=== PATIENT | female | born 1995 ===

== ENCOUNTER 2023-09-10 09:14 | Outpatient (CLI) | payer OTHER, SELFPAY | END 2023-09-10 09:15 | disposition home or self-care (01) | PROVIDERS: PCP Family Medicine; Visit Provider Family Medicine | DX: H91.93 Unspecified hearing loss, bilateral (principal) | CPT/HCPCS: 92557; 92567 ==

== ENCOUNTER 2024-11-23 11:08 | Outpatient (CLI) | payer OTHER, SELFPAY ==
--- OUTSIDE RECORDS SUMMARY | 2024-11-23 12:16 | XMS_ITS | Encounter Summary ---
Author Organization [facility] Address [address] [place] [address] Phone Care Team Providers Care Instrument Sterilizer Name Role Phone Provider, None Primary Care Provider Unavailabl e Encounter Details Date Type Department Care Team (Late st Contact Info) Description 12/04/2022 Lab Requisition [facility] Laboratory Services 1 [place] [address] Christiano Mayorga MD [address] [place] [address] [address] [place] [address] Encounter for screening for COVID-19 Social History Tobacco Use Types Packs/Day Years Used Date Smoking Tobacco: Never Assessed Comments Unknown Sex and Gender Information Value Date Recorded Sex Assigned at Not on file Legal Sex Female 10:14 AM CDT Gender Identity Not on file Sexual Orientation Not on file documented as of this encounter Plan of Treatment Not on file documented as of this encounter Procedures Procedure Name Priority Date/Time Associated Diagnosis Comments SARS-COV-2 BY MOLECULAR Routine 12/04/2022 12:32 PM PEDIATRIC DENTIST Encounter for screening for COVID-19 documented in this encounter Results * SARS-COV-2 BY MOLECULAR (12/04/2022 12:32 PM PEDIATRIC DENTIST) SARSCOV2 NOT DETECTED (Referen ce Range for this test is Not Detected ) [facility] THERMOFISHER FAST DX 12/05/2022 10:01 AM PEDIATRIC DENTIST [facility] Comment:This test was perfor med by a RT-PCR method. Other Non-Phlebotomy Collection / Unknown 12/04/2022 12:32 PM PEDIATRIC DENTIST 12/04/2022 1:36 PM PEDIATRIC DENTIST Narrative [facility] - 12/05/2022 10:01 AM PEDIATRIC DENTIST Authorized Fact Sheets about this test for providers and patients are available at: https://www.fda.gov/medical-devices/iuchgnsjv-cehnpaseyv-gfkolbn-devices/emergen -us e-authorizations us Christiano Mayorga MD MICROBIOLOGY - GENERAL ORDERAB LES Final Result [facility] [address] [place] [address], documented in this encounter Visit Diagnoses Diagnosis Encounter for screening for COVID-19 documented in this encounter Additional Health Concerns Infection Onset Date Last Indicated Resolved Time COVID - 19 10/23/2022 01/08/2023 01/18/2023 12:1 6 AM CDT documented as of this encounter Care Teams Instrument Sterilizer Relationship Specialty Start Date End Date Provider, None [place] PCP - General 10/24/22 documented as of this encounter
--- OUTSIDE RECORDS SUMMARY | 2024-11-23 12:16 | XMS_ITS | Encounter Summary ---
Author Organization [facility] Address [address] [place] [address] Phone Care Team Providers Care Cabinet Professional Name Role Phone Provider, None Primary Care Provider Unavailabl e Encounter Details Date Type Department Care Team (Late st Contact Info) Description 01/08/2023 Lab Requisition [facility] Laboratory Services 1 [place] [address] Christiano Mayorga MD [address] [place] [address] [address] [place] [address] Encounter for screening for COVID-19 [...] Associated Diagnosis Comments SARS-COV-2 BY MOLECULAR Routine 01/08/2023 8:54 AM CDT Encounter for screening for COVID-19 documented in this encounter Results * SARS-COV-2 BY MOLECULAR (01/08/2023 8:54 AM CDT) SARSCOV2 NOT DETECTED (Referen ce Range for this test is Not Detected ) [facility] THERMOFISHER FAST DX 01/09/2023 12:18 AM CDT [facility] Comment:This test was perfor med by a RT-PCR method. Other Non-Phlebotomy Collection / Unknown 01/08/2023 8:54 AM CDT 01/08/2023 12:45 PM CDT Narrative [facility] - 01/09/2023 12:18 AM CDT Authorized Fact Sheets about this test for providers and patients are available at: https://www.fda.gov/medical-devices/jewsvtpqa-zvimlfbjgs-xssuhds-devices/emergen -us e-authorizations us Christiano Mayorga MD MICROBIOLOGY - GENERAL ORDERAB LES Final Result [facility] [address] [place] [address], documented in this encounter Visit Diagnoses Diagnosis Encounter for screening for COVID-19 documented in this encounter Additional Health Concerns Infection Onset Date Last Indicated Resolved Time COVID - 19 10/23/2022 01/08/2023 01/18/2023 12:1 6 AM CDT documented as of this encounter Care Teams Cabinet Professional Relationship Specialty Start Date End Date Provider, None [place] PCP - General 10/24/22 documented as of this encounter
--- OUTSIDE RECORDS SUMMARY | 2024-11-23 12:16 | XMS_ITS | Encounter Summary ---
Author Organization [facility] Address [address] [place] [address] Phone Care Team Providers Care Dot Net Developer Name Role Phone Provider, None Primary Care Provider Unavailabl e Encounter Details Date Type Department Care Team (Late st Contact Info) Description 12/11/2022 Lab Requisition [facility] Laboratory Services 1 [place] [address] Christiano Mayorga MD [address] [place] [address] [address] [place] [address] Encounter for screening for COVID-19 [...] Associated Diagnosis Comments SARS-COV-2 BY MOLECULAR Routine 12/11/2022 9:40 AM SLICE PLUG CUTTER OPERATOR HELPER Encounter for screening for COVID-19 documented in this encounter Results * SARS-COV-2 BY MOLECULAR (12/11/2022 9:40 AM SLICE PLUG CUTTER OPERATOR HELPER) SARSCOV2 NOT DETECTED (Referen ce Range for this test is Not Detected ) [facility] THERMOFISHER FAST DX 12/11/2022 11:48 PM SLICE PLUG CUTTER OPERATOR HELPER [facility] Comment:This test was perfor med by a RT-PCR method. Other Non-Phlebotomy Collection / Unknown 12/11/2022 9:40 AM SLICE PLUG CUTTER OPERATOR HELPER 12/11/2022 12:05 PM SLICE PLUG CUTTER OPERATOR HELPER Narrative [facility] - 12/11/2022 11:48 PM SLICE PLUG CUTTER OPERATOR HELPER Authorized Fact Sheets about this test for providers and patients are available at: https://www.fda.gov/medical-devices/tqzjehqag-xnlqokjeyf-xetdyin-devices/emergen -us e-authorizations us Christiano Mayorga MD MICROBIOLOGY - GENERAL ORDERAB LES Final Result [facility] [address] [place] [address], documented in this encounter Visit Diagnoses Diagnosis Encounter for screening for COVID-19 documented in this encounter Additional Health Concerns Infection Onset Date Last Indicated Resolved Time COVID - 19 10/23/2022 01/08/2023 01/18/2023 12:1 6 AM CDT documented as of this encounter Care Teams Dot Net Developer Relationship Specialty Start Date End Date Provider, None [place] PCP - General 10/24/22 documented as of this encounter
--- OUTSIDE RECORDS SUMMARY | 2024-11-23 12:16 | XMS_ITS | Encounter Summary ---
Author Organization [facility] Address [address] [place] [address] Phone Care Team Providers Care Sounding Device Operator Name Role Phone Provider, None Primary Care Provider Unavailabl e Encounter Details Date Type Department Care Team (Late st Contact Info) Description 08/11/2024 Lab Requisition [facility] Laboratory Services 1 [place] [address] Christiano Mayorga MD [address] [place] [address] [address] [place] [address] Hypothyroidism, unspecified Social History Tobacco Use Types Packs/Day Years [...] Procedure Name Priority Date/Time Associated Diagnosis Comments THYROID STIMULATING HORMONE (TSH) Routine 08/11/2024 7:05 AM CDT Hypothyroidism, unspecified documented in this encounter Results * THYROID STIMULATING HORMONE (TSH) (08/11/2024 7:05 AM CDT) TSH 3.077 0.300 - 5.000 mIU/L 08/11/2024 9:59 AM CDT [facility] Blood Venipuncture / Unknown 08/11/2024 7:05 AM CDT 08/11/2024 8:51 AM CDT us Christiano Mayorga MD CHEMISTRY ORDERABLES Final Res ult [facility] [place] [address] documented in this encounter Visit Diagnoses Diagnosis Hypothyroidism, unspecified documented in this encounter Care Teams Sounding Device Operator Relationship Specialty Start Date End Date Provider, None [place] PCP - General 10/24/22 documented as of this encounter
--- OUTSIDE RECORDS SUMMARY | 2024-11-23 12:16 | XMS_ITS | Encounter Summary ---
Author Organization [facility] Address [address] [place] [address] Phone Care Team Providers Care Defensive Driving Instructor Name Role Phone Provider, None Primary Care Provider Unavailabl e Encounter Details Date Type Department Care Team (Late st Contact Info) Description 12/18/2022 Lab Requisition [facility] Laboratory Services 1 [place] [address] Christiano Mayorga MD [address] [place] [address] [address] [place] [address] Encounter for screening for COVID-19 [...] Associated Diagnosis Comments SARS-COV-2 BY MOLECULAR Routine 12/18/2022 9:49 AM BEEHIVE KILN CHARCOAL BURNER Encounter for screening for COVID-19 documented in this encounter Results * SARS-COV-2 BY MOLECULAR (12/18/2022 9:49 AM BEEHIVE KILN CHARCOAL BURNER) SARSCOV2 NOT DETECTED (Referen ce Range for this test is Not Detected ) [facility] THERMOFISHER FAST DX 12/19/2022 11:35 AM BEEHIVE KILN CHARCOAL BURNER [facility] Comment:This test was perfor med by a RT-PCR method. Other Non-Phlebotomy Collection / Unknown 12/18/2022 9:49 AM BEEHIVE KILN CHARCOAL BURNER 12/18/2022 1:16 PM BEEHIVE KILN CHARCOAL BURNER Narrative [facility] - 12/19/2022 11:35 AM BEEHIVE KILN CHARCOAL BURNER Authorized Fact Sheets about this test for providers and patients are available at: https://www.fda.gov/medical-devices/dtzttiwsq-gihmmdxpci-fantvdq-devices/emergen -us e-authorizations us Christiano Mayorga MD MICROBIOLOGY - GENERAL ORDERAB LES Final Result [facility] [address] [place] [address], documented in this encounter Visit Diagnoses Diagnosis Encounter for screening for COVID-19 documented in this encounter Additional Health Concerns Infection Onset Date Last Indicated Resolved Time COVID - 19 10/23/2022 01/08/2023 01/18/2023 12:1 6 AM CDT documented as of this encounter Care Teams Defensive Driving Instructor Relationship Specialty Start Date End Date Provider, None [place] PCP - General 10/24/22 documented as of this encounter
--- OUTSIDE RECORDS SUMMARY | 2024-11-23 12:16 | XMS_ITS | Encounter Summary ---
Author Organization [facility] Address [address] [place] [address] Phone Care Team Providers Care Long Lines Operator Name Role Phone Provider, None Primary Care Provider Unavailabl e Encounter Details Date Type Department Care Team (Late st Contact Info) Description 10/30/2022 Lab Requisition [facility] Laboratory Services [address] [place] [address] Christiano Mayorga MD [address] [place] [address] [address] [place] [address] Encounter for screening for COVID-19 [...] Associated Diagnosis Comments SARS-COV-2 BY MOLECULAR Routine 10/30/2022 11:50 AM PROCESS AUTOMATION ENGINEER Encounter for screening for COVID-19 documented in this encounter Results * SARS-COV-2 BY MOLECULAR (10/30/2022 11:50 AM PROCESS AUTOMATION ENGINEER) SARSCOV2 NOT DETECTED (Referen ce Range for this test is Not Detected ) [facility] THERMOFISHER FAST DX 10/31/2022 12:24 AM PROCESS AUTOMATION ENGINEER [facility] Comment:This test was perfor med by a RT-PCR method. Other Non-Phlebotomy Collection / Unknown 10/30/2022 11:50 AM PROCESS AUTOMATION ENGINEER 10/30/2022 2:13 PM PROCESS AUTOMATION ENGINEER Narrative [facility] - 10/31/2022 12:24 AM PROCESS AUTOMATION ENGINEER Authorized Fact Sheets about this test for providers and patients are available at: https://www.fda.gov/medical-devices/dgcfmknvb-jqpjxihsue-dsxxapd-devices/emergen -us e-authorizations us Christiano Mayorga MD MICROBIOLOGY - GENERAL ORDERAB LES Final Result [facility] [address] [place] [address], documented in this encounter Visit Diagnoses Diagnosis Encounter for screening for COVID-19 documented in this encounter Additional Health Concerns Infection Onset Date Last Indicated Resolved Time COVID - 19 10/23/2022 01/08/2023 01/18/2023 12:1 6 AM CDT documented as of this encounter Care Teams Long Lines Operator Relationship Specialty Start Date End Date Provider, None [place] PCP - General 10/24/22 documented as of this encounter
--- OUTSIDE RECORDS SUMMARY | 2024-11-23 12:16 | XMS_ITS | Encounter Summary ---
Author Organization [facility] Address [address] [place] [address] Phone Care Team Providers Care Drilling Assistant Name Role Phone Provider, None Primary Care Provider Unavailabl e Encounter Details Date Type Department Care Team (Late st Contact Info) Description 11/21/2022 Lab Requisition [facility] Laboratory Services 1 [place] [address] Christiano Mayorga MD [address] [place] [address] [address] [place] [address] Encounter for screening for COVID-19 [...] Associated Diagnosis Comments SARS-COV-2 BY MOLECULAR Routine 11/21/2022 9:17 AM MANAGER PORTABLE Encounter for screening for COVID-19 documented in this encounter Results * SARS-COV-2 BY MOLECULAR (11/21/2022 9:17 AM MANAGER PORTABLE) SARSCOV2 NOT DETECTED (Referen ce Range for this test is Not Detected ) [facility] THERMOFISHER FAST DX 11/22/2022 10:53 AM MANAGER PORTABLE [facility] Comment:This test was perfor med by a RT-PCR method. Other Non-Phlebotomy Collection / Unknown 11/21/2022 9:17 AM MANAGER PORTABLE 11/21/2022 12:14 PM MANAGER PORTABLE Narrative [facility] - 11/22/2022 10:53 AM MANAGER PORTABLE Authorized Fact Sheets about this test for providers and patients are available at: https://www.fda.gov/medical-devices/gpmjcxapr-gdeacisiyb-dqhobai-devices/emergen -us e-authorizations us Christiano Mayorga MD MICROBIOLOGY - GENERAL ORDERAB LES Final Result [facility] [address] [place] [address], documented in this encounter Visit Diagnoses Diagnosis Encounter for screening for COVID-19 documented in this encounter Additional Health Concerns Infection Onset Date Last Indicated Resolved Time COVID - 19 10/23/2022 01/08/2023 01/18/2023 12:1 6 AM CDT documented as of this encounter Care Teams Drilling Assistant Relationship Specialty Start Date End Date Provider, None [place] PCP - General 10/24/22 documented as of this encounter
--- OUTSIDE RECORDS SUMMARY | 2024-11-23 12:16 | XMS_ITS | Encounter Summary ---
Author Organization [facility] Address [address] [place] [address] Phone Care Team Providers Care Broaching Machine Repairer Name Role Phone Provider, None Primary Care Provider Unavailabl e Encounter Details Date Type Department Care Team (Late st Contact Info) Description 01/01/2023 Lab Requisition [facility] Laboratory Services 1 [place] [address] Christiano Mayorga MD [address] [place] [address] [address] [place] [address] Encounter for screening for COVID-19 [...] Associated Diagnosis Comments SARS-COV-2 BY MOLECULAR Routine 01/01/2023 9:25 AM SUPERVISOR FLESHING Encounter for screening for COVID-19 documented in this encounter Results * SARS-COV-2 BY MOLECULAR (01/01/2023 9:25 AM SUPERVISOR FLESHING) SARSCOV2 NOT DETECTED (Referen ce Range for this test is Not Detected ) [facility] THERMOFISHER FAST DX 01/02/2023 8:54 AM SUPERVISOR FLESHING [facility] Comment:This test was perfor med by a RT-PCR method. Other Non-Phlebotomy Collection / Unknown 01/01/2023 9:25 AM SUPERVISOR FLESHING 01/01/2023 12:33 PM SUPERVISOR FLESHING Narrative [facility] - 01/02/2023 8:54 AM SUPERVISOR FLESHING Authorized Fact Sheets about this test for providers and patients are available at: https://www.fda.gov/medical-devices/cfqeblogw-zyuslzjrxr-wojajgp-devices/emergen -us e-authorizations us Christiano Mayorga MD MICROBIOLOGY - GENERAL ORDERAB LES Final Result [facility] [address] [place] [address], documented in this encounter Visit Diagnoses Diagnosis Encounter for screening for COVID-19 documented in this encounter Additional Health Concerns Infection Onset Date Last Indicated Resolved Time COVID - 19 10/23/2022 01/08/2023 01/18/2023 12:1 6 AM CDT documented as of this encounter Care Teams Broaching Machine Repairer Relationship Specialty Start Date End Date Provider, None [place] PCP - General 10/24/22 documented as of this encounter
--- OUTSIDE RECORDS SUMMARY | 2024-11-23 12:16 | XMS_ITS | Encounter Summary ---
Author Organization [facility] Address [address] [place] [address] Phone Care Team Providers Care Celebrity Manager Name Role Phone Provider, None Primary Care Provider Unavailabl e Encounter Details Date Type Department Care Team (Late st Contact Info) Description 11/27/2022 Lab Requisition [facility] Laboratory Services 1 [place] [address] Christiano Mayorga MD [address] [place] [address] [address] [place] [address] Encounter for screening for COVID-19 [...] Associated Diagnosis Comments SARS-COV-2 BY MOLECULAR Routine 11/27/2022 9:28 AM ENDOCRINOLOGY SPECIALIST Encounter for screening for COVID-19 documented in this encounter Results * SARS-COV-2 BY MOLECULAR (11/27/2022 9:28 AM ENDOCRINOLOGY SPECIALIST) SARSCOV2 NOT DETECTED (Referen ce Range for this test is Not Detected ) [facility] THERMOFISHER FAST DX 11/27/2022 11:59 PM ENDOCRINOLOGY SPECIALIST [facility] Comment:This test was perfor med by a RT-PCR method. Other Non-Phlebotomy Collection / Unknown 11/27/2022 9:28 AM ENDOCRINOLOGY SPECIALIST 11/27/2022 1:05 PM ENDOCRINOLOGY SPECIALIST Narrative [facility] - 11/27/2022 11:59 PM ENDOCRINOLOGY SPECIALIST Authorized Fact Sheets about this test for providers and patients are available at: https://www.fda.gov/medical-devices/oxkgiakdw-ykbgzscekh-nnphjjy-devices/emergen -us e-authorizations us Christiano Mayorga MD MICROBIOLOGY - GENERAL ORDERAB LES Final Result [facility] [address] [place] [place] [address], documented in this encounter Visit Diagnoses Diagnosis Encounter for screening for COVID-19 documented in this encounter Additional Health Concerns Infection Onset Date Last Indicated Resolved Time COVID - 19 10/23/2022 01/08/2023 01/18/2023 12:1 6 AM CDT documented as of this encounter Care Teams Celebrity Manager Relationship Specialty Start Date End Date Provider, None [place] PCP - General 10/24/22 documented as of this encounter
--- OUTSIDE RECORDS SUMMARY | 2024-11-23 12:16 | XMS_ITS | Clinical Summary ---
Author Organization [facility] Address [address] [place] [address] Care Team Providers Care Java Technical Architect Name Role Phone Provider, None Primary Care Provider Unavailabl e Immunizations Immunization Administration Dates Next Due Covid-19, Mrna, Lnp-s, Pf, 30 Mcg/0.3 Ml Dose (P fizer) 08/31/2021 Social History Tobacco Use Types Packs/Day Years Used Date Smoking Tobacco: Never Assessed Comments Unknown Sex and Gender Information Value Date Recorded Sex Assigned at Not on file Legal Sex Female 10:14 AM CDT Gender Identity Not on file Sexual Orientation Not on file Plan of Treatment Health Maintenance Due Date Last Done Comments Hepatitis C Virus (HCV) Screening 1995 TdaP Immunization 1995 Hepatitis B Immunization (1 of 3 - 19+ 3-dose series) 2014 Pap Smear 2016 Influenza Immunization (#1) 2024 SARS-COV-2 Immunization ( season) 2024 08/31/2021, 12/28/2020, 12/11/2020 Respiratory Syncytial Virus (RSV) Immunization (Adult) (1 - 1-dose 75+ series) 2070 Meningococcal Immunization (ACWY) Aged Out No longer eligible b ased on patient's age to complete this topic Pneumococcal Immunization Combined Aged Out No longer eligible b ased on patient's age to complete this topic Rotavirus Immunization Aged Out No lo nger eligible based on patient's age to complete this topic Insurance [place]ICAID [place] Care Teams Java Technical Architect Relationship Specialty Start Date End Date Provider, None [place] PCP - General 10/24/22
--- OUTSIDE RECORDS SUMMARY | 2024-11-23 12:16 | XMS_ITS | Encounter Summary ---
Author Organization [facility] Address [address] [place] [address] Phone Care Team Providers Care Transitional Living Specialist Name Role Phone Provider, None Primary Care Provider Unavailabl e Encounter Details Date Type Department Care Team (Late st Contact Info) Description 10/23/2022 Lab Requisition [facility] Laboratory Services [address] [place] [address] Christiano Mayorga MD [address] [place] [address] [address] [place] [address] Encounter for screening for COVID-19 [...] Associated Diagnosis Comments SARS-COV-2 BY MOLECULAR Routine 10/23/2022 11:29 AM EVENT DECORATOR AND DESIGNER Encounter for screening for COVID-19 documented in this encounter Results * SARS-COV-2 BY MOLECULAR (10/23/2022 11:29 AM EVENT DECORATOR AND DESIGNER) SARSCOV2 NOT DETECTED (Referen ce Range for this test is Not Detected ) [facility] THERMOFISHER FAST DX 10/24/2022 12:33 AM EVENT DECORATOR AND DESIGNER [facility] Comment:This test was perfor med by a RT-PCR method. Other Non-Phlebotomy Collection / Unknown 10/23/2022 11:29 AM EVENT DECORATOR AND DESIGNER 10/23/2022 2:20 PM EVENT DECORATOR AND DESIGNER Narrative [facility] - 10/24/2022 12:33 AM EVENT DECORATOR AND DESIGNER Authorized Fact Sheets about this test for providers and patients are available at: https://www.fda.gov/medical-devices/phcfnunfq-kuhmrfpgxj-drboero-devices/emergen -us e-authorizations us Christiano Mayorga MD MICROBIOLOGY - GENERAL ORDERAB LES Final Result [facility] [address] [place] [address], documented in this encounter Visit Diagnoses Diagnosis Encounter for screening for COVID-19 documented in this encounter Additional Health Concerns Infection Onset Date Last Indicated Resolved Time COVID - 19 10/23/2022 01/08/2023 01/18/2023 12:1 6 AM CDT documented as of this encounter Care Teams Transitional Living Specialist Relationship Specialty Start Date End Date Provider, None [place] PCP - General 10/24/22 documented as of this encounter
--- OUTSIDE RECORDS SUMMARY | 2024-11-23 12:16 | XMS_ITS | Encounter Summary ---
Author Organization [facility] Address [address] [place] [address] Phone Care Team Providers Care Stock And Station Agent Name Role Phone Provider, None Primary Care Provider Unavailabl e Encounter Details Date Type Department Care Team (Late st Contact Info) Description 11/06/2022 Lab Requisition [facility] Services [address] [place] [address] Christiano Mayorga MD [address] [place] [address] [address] [place] [address] Encounter for screening for COVID-19 [...] Associated Diagnosis Comments SARS-COV-2 BY MOLECULAR Routine 11/06/2022 11:36 AM QUALITY ASSURANCE SUPERVISOR Encounter for screening for COVID-19 documented in this encounter Results * SARS-COV-2 BY MOLECULAR (11/06/2022 11:36 AM QUALITY ASSURANCE SUPERVISOR) SARSCOV2 NOT DETECTED (Referen ce Range for this test is Not Detected ) [facility] THERMOFISHER FAST DX 11/07/2022 12:34 AM QUALITY ASSURANCE SUPERVISOR [facility] Comment:This test was perfor med by a RT-PCR method. Other Non-Phlebotomy Collection / Unknown 11/06/2022 11:36 AM QUALITY ASSURANCE SUPERVISOR 11/06/2022 2:09 PM QUALITY ASSURANCE SUPERVISOR Narrative [facility] - 11/07/2022 12:34 AM QUALITY ASSURANCE SUPERVISOR Authorized Fact Sheets about this test for providers and patients are available at: https://www.fda.gov/medical-devices/wyqdxikhn-ztngismbwn-ihmrtbo-devices/emergen -us e-authorizations us Christiano Mayorga MD MICROBIOLOGY - GENERAL ORDERAB LES Final Result [facility] [address] [place] [place] [address], documented in this encounter Visit Diagnoses Diagnosis Encounter for screening for COVID-19 documented in this encounter Additional Health Concerns Infection Onset Date Last Indicated Resolved Time COVID - 19 10/23/2022 01/08/2023 01/18/2023 12:1 6 AM CDT documented as of this encounter Care Teams Stock And Station Agent Relationship Specialty Start Date End Date Provider, None [place] PCP - General 10/24/22 documented as of this encounter
--- OUTSIDE RECORDS SUMMARY | 2024-11-23 12:16 | XMS_ITS | Encounter Summary ---
Author Organization [facility] Address [address] [place] [address] Phone Care Team Providers Care Police Captain Senior Name Role Phone Provider, None Primary Care Provider Unavailabl e Encounter Details Date Type Department Care Team (Late st Contact Info) Description 11/13/2022 [facility] [address] [place] [address] Christiano Mayorga MD [address] [place] [address] [address] [place] [address] Encounter for screening for COVID-19 [...] Associated Diagnosis Comments SARS-COV-2 BY MOLECULAR Routine 11/13/2022 9:26 AM ON AWAKE COUNSELOR Encounter for screening for COVID-19 documented in this encounter Results * SARS-COV-2 BY MOLECULAR (11/13/2022 9:26 AM ON AWAKE COUNSELOR) SARSCOV2 NOT DETECTED (Referen ce Range for this test is Not Detected ) [facility] [place] THERMOFISHER FAST DX 11/14/2022 12:39 AM ON AWAKE COUNSELOR [facility] Comment:This test was perfor med by a RT-PCR method. Other COVID 19 Collection / Unknown 11/13/2022 9:26 AM ON AWAKE COUNSELOR 11/13/2022 11:37 AM ON AWAKE COUNSELOR Narrative [facility] - 11/14/2022 12:39 AM ON AWAKE COUNSELOR Authorized Fact Sheets about this test for providers and patients are available at: https://www.fda.gov/medical-devices/uijnvfkkv-bqjmwzxxdh-soneish-devices/emergen -us e-authorizations us Christiano Mayorga MD MICROBIOLOGY - GENERAL ORDERAB LES Final Result [facility] [address] [place] [address], documented in this encounter Visit Diagnoses Diagnosis Encounter for screening for COVID-19 documented in this encounter Additional Health Concerns Infection Onset Date Last Indicated Resolved Time COVID - 19 10/23/2022 01/08/2023 01/18/2023 12:1 6 AM CDT documented as of this encounter Care Teams Police Captain Senior Relationship Specialty Start Date End Date Provider, None [place] PCP - General 10/24/22 documented as of this encounter
--- OUTSIDE RECORDS SUMMARY | 2024-11-23 12:16 | XMS_ITS | Encounter Summary ---
Author Organization [facility] Address [address] [place] [address] Phone Care Team Providers Care Estate Manager Name Role Phone Provider, None Primary Care Provider Unavailabl e Encounter Details Date Type Department Care Team (Late st Contact Info) Description 12/25/2022 Lab Requisition [facility] Laboratory Services [address] [place] [address] Christiano Mayorga MD [address] [place] [address] [address] [place] [address] Encounter for screening for COVID-19 [...] Associated Diagnosis Comments SARS-COV-2 BY MOLECULAR Routine 12/25/2022 9:36 AM MARSH BUGGY OPERATOR Encounter for screening for COVID-19 documented in this encounter Results * SARS-COV-2 BY MOLECULAR (12/25/2022 9:36 AM MARSH BUGGY OPERATOR) SARSCOV2 NOT DETECTED (Referen ce Range for this test is Not Detected ) [facility] THERMOFISHER FAST DX 12/26/2022 12:24 AM MARSH BUGGY OPERATOR [facility] Comment:This test was perfor med by a RT-PCR method. Other Non-Phlebotomy Collection / Unknown 12/25/2022 9:36 AM MARSH BUGGY OPERATOR 12/25/2022 1:26 PM MARSH BUGGY OPERATOR Narrative [facility] - 12/26/2022 12:24 AM MARSH BUGGY OPERATOR Authorized Fact Sheets about this test for providers and patients are available at: https://www.fda.gov/medical-devices/pwvysoxfd-tcznjtbflb-imkvwqx-devices/emergen -us e-authorizations us Christiano Mayorga MD MICROBIOLOGY - GENERAL ORDERAB LES Final Result [facility] [address] [place] [address], documented in this encounter Visit Diagnoses Diagnosis Encounter for screening for COVID-19 documented in this encounter Additional Health Concerns Infection Onset Date Last Indicated Resolved Time COVID - 19 10/23/2022 01/08/2023 01/18/2023 12:1 6 AM CDT documented as of this encounter Care Teams Estate Manager Relationship Specialty Start Date End Date Provider, None [place] PCP - General 10/24/22 documented as of this encounter
== END 2024-11-23 11:09 | disposition home or self-care (01) ==
LOC: ANHBWCAUD 11:08
PROVIDERS: PCP Family Medicine; Visit Provider Family Medicine
DX: H90.42 Sensorineural hearing loss, unilateral, left ear, with unrestricted hearing on the contralateral side (principal); H90.71 Mixed conductive and sensorineural hearing loss, unilateral, right ear, with unrestricted hearing on the contralateral side
CPT/HCPCS: 92557; 92567